=== PATIENT | female | born 1995 | race American Indian/Alaskan Native ===

== ENCOUNTER 2019-04-09 11:33 | Inpatient (IN) | payer MEDICAID ==
--- NOTE | 2019-04-09 11:42 | History and Physical Report ---
History of Present Illness Date of examination: 04/09/19 Date of admission: 04/09/19 11:33 Chief complaint: My water broke. History of present illness: Patient is a 23 year old who presents at 38.5 weeks with complaint of ROM with EDC 04/18/19. She has had an uncomplicated course. Pt is GBS negative. Past History Past Medical History: no pertinent history Past Surgical History: no surgical history Social history: single - Obstetrical History Expected Date of Delivery: 04/18/19 Actual Gestation: 38 Week(s) 5 Day(s) : 3 Para: 1 Number of Living Children: 1 Medications and Allergies Allergies Allergy/AdvReac Type Severity Reaction Status Date / Time No Known Allergies Allergy Unverified 12/11/15 13:35 Home Medications Medication Instructions Recorded Confirmed Last Taken Type DOXYCYCLINE Hyclate [Vibramycin 100 mg PO Q12HR #14 capsule 12/13/15 10/27/16 Unknown Rx CAP] Methylergonovine [Methergine] 0.2 mg PO Q8HR #6 tablet 12/13/15 10/27/16 Unknown Rx oxyCODONE /ACETAMINOPHEN [Percocet 1 tab PO Q6HR PRN #30 tablet 12/13/15 10/27/16 Unknown Rx 5/325] Ferrous Sulfate [Feosol 325 MG tab] 325 mg PO BID #60 tablet 10/28/16 Unknown Rx HYDROcodone/APAP 5-325 [[place] 2 each PO Q6H PRN #30 tablet 10/28/16 Unknown Rx 5-325 mg TAB] Ibuprofen [Motrin 800 MG tab] 800 mg PO Q8HR PRN #30 tablet 10/28/16 Unknown Rx Review of Systems All systems: negative Genitourinary: leakage of fluid, contractions - Physical Exam Breasts: Positive: deferred Cardiovascular: Regular rate, Normal S1, Normal S2 Lungs: Positive: Clear to auscultation, Normal air movement Abdomen: Positive: normal appearance, soft, normal bowel sounds Genitourinary (Female): Positive: normal external genitalia, normal perenium Vulva: both: normal Vagina: Positive: normal moisture Uterus: Positive: normal size Extremities: Positive: normal - Obstetrical FHR: auscultation normal Cervical Dilatation: 3 Cervical Effacement Percentage: 80 station: 0 Uterine Contraction Pattern: Irregular Uterine Contraction Intensity: Moderate Results All other labs normal. Assessment and Plan IUP at 38.5 weeks with srom. Doing well. Admit for labor and augmentation. Pt may have epidural when ready.Anticipate .
[2019-04-09] MEDS ORDERED: BRETHINE IVP PRN (11:43)
[2019-04-09] MEDS ORDERED: STADOL IV PRN (11:43)
[2019-04-09] MEDS ORDERED: XYLOCAINE 2% INFILTRATI ONE (11:43)
[2019-04-09] MEDS ORDERED: MINERAL OIL PO PRN (11:43)
[2019-04-09] MEDS ORDERED: BRETHINE SUB-Q PRN (11:43)
[2019-04-09] MEDS ORDERED: SUBLIMAZE IV PRN (11:43)
[2019-04-09] MEDS ORDERED: PHENERGAN PR PRN ×2 (11:43→20:58)
[2019-04-09] MEDS ORDERED: PITOCin/NS 20 UNIT/1000ML DRIP 20 UNITS/1,000 ML BAG IV SCH ×2 (12:00→20:58)
[2019-04-09] MEDS ORDERED: PITOCin/NS 30 UNIT/500ML 30 UNITS/500 ML BAG IV SCH ×2 (12:00)
[2019-04-09 12:08] LABS: Hemoglobin 8.2 gm/dl (10.1-14.3); Mean Corpuscular HGB Conc 32 % (30-34); Mean Corpuscular Volume 70 fl (79-97); Platelet Count 226 K/mm3 (140-440); Red Blood Count 3.73 M/mm3 (3.65-5.03); Red Cell Distribution Width 17.2 % (13.2-15.2)
[2019-04-09] MEDS: LACTATED RINGERS 1,000 ML IV SCH ×2 (12:54→16:26)
[2019-04-09] MEDS ORDERED: NARCAN 2 MG/2 ML IV PRN (17:17)
--- NOTE | 2019-04-09 17:20 | Anesthesia Consultation ---
Anesthesia Consult and Med Hx Date of service: 04/09/19 - Airway Anesthetic Teeth Evaluation: Good ROM Head & Neck: Adequate Mental/Hyoid Distance: Adequate Mallampati Class: Class II Intubation Access Assessment: Probably Good - Pulmonary Exam CTA: Yes - Cardiac Exam Cardiac Exam: RRR - Pre-Operative Health Status ASA Pre-Surgery Classification: ASA2 Proposed Anesthetic Plan: Epidural, Spinal - Pulmonary Hx Smoking: No Hx Asthma: No Hx Respiratory Symptoms: No SOB: No COPD: No Home Oxygen Therapy: No Hx Pneumonia: No Hx Sleep Apnea: No - Cardiovascular System Hx Hypertension: No Hx Coronary Artery Disease: No Hx Heart Attack/AMI: No Hx Angina: No Hx Percutaneous Transluminal Coronary Angioplasty (PTCA): No Hx Cardia Arrhythmia: No Hx Pacemaker: No Hx Internal Defibrillator: No Hx Valvular Heart Disease: No Hx Heart Murmur: No Hx Peripheral Vascular Disease: No - Central Nervous System Hx Neuromuscular Disorder: No Hx Seizures: No CVA: No Hx Back Pain: No Hx Psychiatric Problems: No - Gastrointestinal Hx Ulcer: No Hx Gastroesophageal Reflux Disease: Yes - Endocrine Hx Renal Disease: No Hx End Stage Renal Disease: No Hx Cirrhosis: No Hx Liver Disease: No Hx Insulin Dependent Diabetes: No Hx Non-Insulin Dependent Diabetes: No Hx Thyroid Disease: No Hx Hypothyroidism: No Hx Hyperthyroidism: No - Hematic Hx Anemia: No Hx Sickle Cell Disease: No - Other Systems Hx Alcohol Use: No Hx Substance Use: No Hx Cancer: No Hx Obesity: No
--- NOTE | 2019-04-09 17:21 | Post Anesthesia Evaluation ---
- Post Anesthesia Evaluation Patient Participated: Yes Airway Patent: Yes Stable Respiratory Function: Yes Nausea/Vomiting: No Temp > 96.8F: Yes Pain Manageable: Yes Adequeate Hydration: No Block Receding Appropriately: Yes Patient on Ventilator: No
--- NOTE | 2019-04-09 17:21 | Anesthesia Day of Surgery ---
Anesthesia Day of Surgery - Day of Surgery Patient Examined: Yes Patient H&P Reviewed: Yes Patient is NPO: Yes Beta Blockers: No Cardiac Clearance: No Pulmonary Clearance: No Josiah's Test: N/A
[2019-04-09] MEDS ORDERED: CYTOTEC ONE (17:40)
[2019-04-09] MEDS ORDERED: fentaNYL-BUPIV 2 MCG/ML-0.125% 200 MCG/100 ML BAG EPIDURAL SCH (18:00)
--- NOTE | 2019-04-09 18:01 | Procedure Note ---
OB Delivery Note - Delivery Date of Delivery: 04/09/19 Surgeon: LILLIAN MURILLO Estimated blood loss: other (400 mL) - Vaginal Delivery presentation: vertex Delivery position: OA Intrapartum events: PROM->1hr before delivery, uterine atony Delivery induction: oxytocin Delivery augmentation: pitocin Delivery monitor: external FHT, external uterine Route of delivery: Delivery placenta: spontaneous Delivery cord: 3 umbilical vessels Episiotomy: none Delivery laceration: none Anesthesia: epidural - Infant A at 1 minute: 8 at 5 minutes: 9 Infant Gender: Female (3294g (7lb 4.2 oz) @ 1725 pm)
[2019-04-09] MEDS ORDERED: TUCKS PAD TP PRN (20:58)
[2019-04-09] MEDS ORDERED: MILK OF MAGNESIA PO PRN (20:58)
[2019-04-09] MEDS ORDERED: ZOFRAN IV PRN (20:58)
[2019-04-09] MEDS ORDERED: TYLENOL PO PRN (20:58)
[2019-04-09] MEDS ORDERED: PHENERGAN PO PRN (20:58)
[2019-04-09] MEDS ORDERED: NORCO 5/325 PO PRN (20:58)
[2019-04-09] MEDS ORDERED: BENADRYL PO PRN (20:58)
[2019-04-09] MEDS ORDERED: SODIUM CHLORIDE FLUSH SYRINGE 10 ML IV NR (20:58)
[2019-04-09] MEDS ORDERED: DULCOLAX PR PRN (20:58)
[2019-04-09] MEDS ORDERED: LANSINOH TP PRN (20:58)
[2019-04-09] MEDS: FEOSOL PO SCH (21:42)
[2019-04-09] MEDS: IBUPROFEN PO SCH (21:43)
[2019-04-10] MEDS: IBUPROFEN PO SCH ×4 (05:31→23:57)
[2019-04-10 05:35] LABS: Hematocrit 20.2 % (30.3-42.9); Hemoglobin 6.4 gm/dl (10.1-14.3)
[2019-04-10] MEDS ORDERED: M-M-R II VACCINE SUB-Q ONE (06:00)
[2019-04-10] MEDS ORDERED: BOOSTRIX IM ONE (06:00)
--- NOTE | 2019-04-10 08:25 | Progress Note ---
Assessment and Plan - Patient Problems (1) (normal spontaneous vaginal delivery) Current Visit: No Status: Acute Plan to address problem: monitor closely routine care Subjective - Subjective Date of service: 04/10/19 Interval history: Patient denies any dizziness with ambulation. Had a decrease in H/H however patient appears to be tolerating without difficulty. Pain well controlled. Patient reports: appetite normal, voiding normally, pain well controlled, no dizzy ambulation [place]: doing well Objective - Vital Signs Latest vital signs: Vital Signs Temp Pulse Resp BP BP Pulse Ox 04/10/19 04:30 98.7 F 65 16 106/63 04/10/19 00:30 98.7 F 77 16 118/67 04/09/19 20:23 98.0 F 96 H 18 133/87 100 04/09/19 19:43 107 H 125/76 04/09/19 19:27 100 H 141/86 04/09/19 19:12 89 138/88 04/09/19 18:57 83 137/82 04/09/19 18:43 88 136/76 04/09/19 18:28 100 H 134/102 04/09/19 18:13 96 H 129/75 04/09/19 17:57 96 H 144/84 04/09/19 17:43 104 H 142/72 04/09/19 17:27 116 H 145/63 04/09/19 17:22 120 H 138/81 04/09/19 17:17 106 H 178/74 04/09/19 17:14 100 H 132/72 97 04/09/19 17:13 102 H 122/69 04/09/19 17:10 101 H 149/86 04/09/19 17:09 105 H 142/84 99 04/09/19 17:04 111 H 99 04/09/19 16:56 119 H 100 04/09/19 16:50 112 H 98 04/09/19 16:45 103 H 100 04/09/19 16:40 94 H 98 04/09/19 16:39 85 94 04/09/19 16:35 99 H 98 04/09/19 16:31 101 H 94 04/09/19 16:30 98 H 97 04/09/19 16:25 98 H 99 04/09/19 16:20 87 99 04/09/19 16:16 99.1 F 04/09/19 16:15 100 H 98 04/09/19 16:10 103 H 94 04/09/19 16:07 100 H 137/88 04/09/19 16:05 104 H 99 04/09/19 16:00 114 H 98 04/09/19 15:55 98 H 99 04/09/19 15:50 102 H 99 04/09/19 15:45 96 H 98 04/09/19 15:40 98 H 98 04/09/19 15:38 100 H 147/80 04/09/19 15:35 101 H 98 04/09/19 15:30 110 H 99 04/09/19 15:25 105 H 99 04/09/19 15:20 112 H 98 04/09/19 15:15 97 H 98 04/09/19 15:10 107 H 97 04/09/19 15:08 95 H 130/82 04/09/19 15:05 104 H 99 04/09/19 15:00 95 H 97 04/09/19 14:55 101 H 97 04/09/19 14:50 99 H 98 04/09/19 14:45 97 H 98 04/09/19 14:40 94 H 100 04/09/19 14:33 96 H 99 04/09/19 14:28 100 H 98 04/09/19 14:23 93 H 99 04/09/19 14:18 91 H 99 04/09/19 14:13 96 H 99 04/09/19 14:09 94 H 133/89 04/09/19 14:08 98 H 99 04/09/19 14:03 98 H 100 04/09/19 14:01 99.0 F 04/09/19 13:58 105 H 99 04/09/19 13:53 102 H 100 04/09/19 13:48 93 H 100 04/09/19 13:43 106 H 99 04/09/19 13:38 99 H 98 04/09/19 13:37 111 H 142/94 04/09/19 13:33 106 H 98 04/09/19 13:28 103 H 99 04/09/19 13:23 108 H 100 04/09/19 13:18 102 H 99 04/09/19 13:13 102 H 99 04/09/19 13:08 106 H 98 04/09/19 13:03 107 H 99 04/09/19 12:58 101 H 99 04/09/19 12:53 97 H 98 04/09/19 12:48 113 H 98 04/09/19 12:13 109 H 98 04/09/19 12:08 114 H 98 04/09/19 12:03 116 H 98 04/09/19 11:58 109 H 99 04/09/19 11:53 111 H 98 04/09/19 11:48 114 H 98 Intake and Output 04/09/19 04/10/19 04/10/19 22:59 06:59 14:59 Intake Total 749.667 Output Total 250 1400 Balance 499.667 -1400 Intake: IV 449.667 Lactated Ringers 1,000 ml 441.667 @ 125 mls/hr IV DIRECT NITESH Rx#:[id number] PITOCin/NS 30 UNIT/500ML 8 30 units In 500 ml @ 1 MILLIUNITS/MIN 1 mls/hr IV TITR NITESH Rx#:[id number] Intake, Free Water 300 Output: Urine 250 1400 Void 250 1400 Other: Total, Output Amount 250 600 # Voids Void 1 1 - Exam Abdomen: Present: normal appearance - Labs Labs: Abnormal lab results 04/09/19 04/10/19 Range/Units 11:20 05:09 WBC 17.1 H (4.5-11.0) K/mm3 Hgb 8.2 L 6.4 L (10.1-14.3) gm/dl Hct 26.0 L 20.2 L (30.3-42.9) % MCV 70 L (79-97) fl MCH 22 L (28-32) pg RDW 17.2 H (13.2-15.2) %
[2019-04-10] MEDS: FEOSOL PO SCH ×2 (13:20→21:18)
[2019-04-11] MEDS: IBUPROFEN PO SCH (05:32)
--- NOTE | 2019-04-11 11:16 | Progress Note ---
Assessment and Plan - Patient Problems (1) (normal spontaneous vaginal delivery) Current Visit: No Status: Acute Plan to address problem: discharge home Subjective - Subjective Date of service: 04/11/19 Interval history: Patient denies any dizziness with ambulation. She has been ambulating without difficulty. Pain well controlled Patient reports: appetite normal, voiding normally, pain well controlled, no dizzy ambulation : doing well Objective - Vital Signs Latest vital signs: Vital Signs Temp Pulse Resp BP BP Pulse Ox 04/11/19 08:11 98.1 F 80 16 135/90 100 04/11/19 00:48 98.2 F 85 16 126/74 100 04/10/19 16:23 98.2 F 91 H 18 125/78 04/10/19 13:35 99.7 F H 90 18 135/80 99 Intake and Output 04/10/19 04/11/19 04/11/19 22:59 06:59 14:59 Intake Total 480 380 240 Balance 480 380 240 Intake: Oral 480 380 240 Other: Total, Intake Amount 480 380 240 Voiding Method Toilet Toilet # Voids Void 4 # Bowel Movements 0 - Exam Uterus: Present: normal, firm
--- NOTE | 2019-04-11 11:18 | Discharge Summary ---
Providers - Providers Date of Admission: 04/09/19 11:33 Date of discharge: 04/11/19 Attending physician: DAMIAN TRIPLETT Primary care physician: DAMIAN TRIPLETT Hospitalization Reason for admission: active labor Delivery: Discharge diagnosis: IUP at term delivered [place] baby: female Hospital course: Patient admitted with +SROM. Had a . complicated by anemia that the patient tolerated. Condition at discharge: Good Disposition: DC-01 TO HOME OR SELFCARE - Discharge Diagnoses (1) (normal spontaneous vaginal delivery) Status: Acute Plan - Discharge Medications Prescriptions: Ferrous Sulfate [Feosol 325 MG tab] 325 mg PO BID #60 tablet Ibuprofen [Motrin] 800 mg PO Q8HR PRN #60 tablet PRN Reason: Pain, Mild (1-3) HYDROcodone/APAP 5-325 [[place] 5/325] 1 each PO Q6HR PRN #20 tablet PRN Reason: Pain - Provider Discharge Summary Activity: no sex for 6 weeks, no heavy lifting 4 weeks, no strenuous exercise Diet: routine Instructions: routine Additional instructions: [] Smoking cessation referral if applicable(refer to patient education folder for contact #) [] Refer to [facility] Booklet Call your doctor immediately for: * Fever > 100.5 * Heavy vaginal bleeding ( >1 pad per hour) * Severe persistent headache * Shortness of breath * Reddened, hot, painful area to leg or breast * schedule followup in 4 weeks - Follow up plan
[2019-04-11 12:35] VITALS: BP 135/93
== END 2019-04-11 14:15 | disposition home or self-care (01) | DRG 775 ==
LOC: LD 11:33 → OB 20:39
PROVIDERS: ADMIT Obstetrics & Gynecology; ATTEND Obstetrics & Gynecology
PROC: 10E0XZZ Delivery of Products of Conception, External Approach (ICD-10-PCS; principal; 2019-04-09)
PROC: 3E0R3BZ Introduction of Anesthetic Agent into Spinal Canal, Percutaneous Approach (ICD-10-PCS; 2019-04-09)
PROC: 00HU33Z Insertion of Infusion Device into Spinal Canal, Percutaneous Approach (ICD-10-PCS; 2019-04-09)
PROC: 3E033VJ Introduction of Other Hormone into Peripheral Vein, Percutaneous Approach (ICD-10-PCS; 2019-04-09)
PROC: 3E0234Z Introduction of Serum, Toxoid and Vaccine into Muscle, Percutaneous Approach (ICD-10-PCS; 2019-04-10)
DX: O42.92 Full-term premature rupture of membranes, unspecified as to length of time between rupture and onset of labor (principal); K21.9 Gastro-esophageal reflux disease without esophagitis; Z37.0 Single live birth; Z3A.38 38 weeks gestation of pregnancy; O62.2 Other uterine inertia; O99.62 Diseases of the digestive system complicating childbirth; O90.81 Anemia of the puerperium; D64.9 Anemia, unspecified; Z23 Encounter for immunization
CPT/HCPCS: 36415; 85014; 85018; 85027; 86592; 86850; 86900; 86901; 90471; 90715; G0378; J2590; J3010; J7120

== ENCOUNTER 2019-05-05 06:21 | Day surgery (SDC) | payer MEDICAID ==
[2019-05-05] MEDS ORDERED: NACL BACTERIOSTATIC INFILTRATI ONE (06:44)
[2019-05-05] MEDS ORDERED: XYLOCAINE MPF 2% ONE (07:11)
[2019-05-05] MEDS ORDERED: SUBLIMAZE ONE (07:11)
[2019-05-05] MEDS ORDERED: ZOFRAN ONE (07:11)
[2019-05-05] MEDS ORDERED: ZEMURON IV ONE (07:11)
[2019-05-05] MEDS ORDERED: SUBLIMAZE IV PRN (07:12)
[2019-05-05] MEDS ORDERED: DIPRIVAN 10 MG/ML IV ONE (07:12)
[2019-05-05] MEDS ORDERED: ZOFRAN IV PRN (07:12)
--- NOTE | 2019-05-05 07:13 | Anesthesia Day of Surgery ---
Anesthesia Day of Surgery - Day of Surgery Patient Examined: Yes Patient H&P Reviewed: Yes Patient is NPO: Yes
[2019-05-05 07:14] LABS: Basophils # (Auto) 0.1 K/mm3 (0.0-0.1); Basophils % (Auto) 0.8 % (0.0-1.8); Eosinophils # (Auto) 0.5 K/mm3 (0.0-0.4); Eosinophils % (Auto) 6.1 % (0.0-4.3); Hematocrit 26.9 % (30.3-42.9); Hemoglobin 8.3 gm/dl (10.1-14.3); Lymphocytes # (Auto) 3.6 K/mm3 (1.2-5.4); Lymphocytes % (Auto) 44.2 % (13.4-35.0); Mean Corpuscular HGB Conc 31 % (30-34); Mean Corpuscular Volume 70 fl (79-97); Monocytes # (Auto) 0.4 K/mm3 (0.0-0.8); Monocytes % (Auto) 4.8 % (0.0-7.3); Platelet Count 228 K/mm3 (140-440); Red Blood Count 3.84 M/mm3 (3.65-5.03)
--- NOTE | 2019-05-05 07:15 | Anesthesia Consultation ---
Anesthesia Consult and Med Hx Date of service: 05/05/19 - Airway Anesthetic Teeth Evaluation: Good Mallampati Class: Class II Intubation Access Assessment: Good - Pre-Operative Health Status ASA Pre-Surgery Classification: ASA2 Proposed Anesthetic Plan: General (April 09-had baby and not ) - Pulmonary Hx Smoking: Yes (STOPPED 2014) Hx Asthma: No Hx Respiratory Symptoms: No SOB: No COPD: No Hx Pneumonia: No Hx Sleep Apnea: No (ABHISHEK PRE SCREEN NEGATIVE) - Cardiovascular System Hx Hypertension: No Hx Coronary Artery Disease: No Hx Heart Attack/AMI: No Hx Angina: No Hx Percutaneous Transluminal Coronary Angioplasty (PTCA): No Hx Cardia Arrhythmia: No Hx Pacemaker: No Hx Internal Defibrillator: No Hx Valvular Heart Disease: No Hx Heart Murmur: No Hx Peripheral Vascular Disease: No - Central Nervous System Hx Neuromuscular Disorder: No Hx Seizures: No CVA: No Hx Back Pain: No Hx Psychiatric Problems: No - Gastrointestinal Hx Ulcer: No Hx Gastroesophageal Reflux Disease: Yes - Endocrine Hx Renal Disease: No Hx End Stage Renal Disease: No Hx Cirrhosis: No Hx Liver Disease: No Hx Insulin Dependent Diabetes: No Hx Non-Insulin Dependent Diabetes: No Hx Thyroid Disease: No Hx Hypothyroidism: No Hx Hyperthyroidism: No - Hematic Hx Anemia: Yes (ON DAILY IRON) Hx Sickle Cell Disease: No - Other Systems Hx Alcohol Use: No Hx Substance Use: No Hx Cancer: No Hx Obesity: No - Additional Comments Anesthesia Medical History Comments: Had baby April 09 and not
[2019-05-05 07:18] LABS: Red Cell Distribution Width 20.6 % (13.2-15.2)
[2019-05-05] MEDS ORDERED: BREVIBLOC IV ONE (07:30)
[2019-05-05] MEDS ORDERED: DECADRON ONE (07:30)
[2019-05-05] MEDS ORDERED: MARCAINE 0.25% INFILTRATI ONE ×2 (07:49→09:13)
[2019-05-05] MEDS ORDERED: LACTATED RINGERS 1,000 ML IV SCH (08:00)
[2019-05-05] MEDS ORDERED: VERSED IV NR (08:00)
[2019-05-05] MEDS ORDERED: TRANSDERM-SCOP TD NR (08:00)
--- NOTE | 2019-05-05 08:32 | Short Stay Summary ---
Short Stay Documentation Date of service: 05/05/19 Narrative H&P: Pt is a 23 year old female who presents today for elective sterilization. - History H&P: obtained from office Past Medical History: No medical history, anemia Past Surgical History: No surgical history Social history: single - Allergies and Medications Current Medications: Allergies No Known Allergies Allergy (Verified 04/09/19 11:46) Home Medications Medication Instructions Recorded Confirmed Last Taken Type Ferrous Sulfate [Feosol 325 MG tab] 325 mg PO BID #60 tablet 10/28/16 05/05/19 2 Days Ago Rx ~05/03/19 Ibuprofen [Motrin] 800 mg PO Q8HR PRN #60 tablet 04/11/19 05/05/19 1 Week Ago Rx ~04/28/19 Active Medications Fentanyl (Sublimaze) 50 mcg IV Q5MIN PRN PRN Reason: Pain , Severe (7-10) Stop: 05/05/19 20:00 Lactated Ringer's (Lactated Ringers) 1,000 mls @ 125 mls/hr IV DIRECT NITESH Last Admin: 05/05/19 07:33 Dose: 125 mls/hr Documented by: Midazolam HCl (Versed) 2 mg IV PREOP NR Stop: 05/05/19 23:59 Ondansetron HCl (Zofran) 4 mg IV ONCE PRN PRN Reason: Nausea And Vomiting Stop: 05/05/19 16:00 Scopolamine (Transderm-Scop) 1 each TD PREOP NR Stop: 05/05/19 20:00 Last Admin: 05/05/19 07:33 Dose: 1 each Documented by: - Physical exam General appearance: no acute distress Integumentary: no rash Lungs: Clear to auscultation, Normal air movement Breasts: deferred Heart: Regular rate, Normal S1, Normal S2 Gastrointestinal: normal, normoactive bowel sounds Female Genitourinary: deferred Rectal Exam: deferred Extremities: abnormal (plus 1 edema) Neurological: Normal speech, Normal tone - Brief post op/procedure progress note Date of procedure: 05/05/19 Pre-op diagnosis: Undesired fertility Post-op diagnosis: same Procedure: Bilateral partial salpingectomy Anesthesia: GETA Findings: Slightly enlarged uterus, normal tubes and ovaries Surgeon: DAMIAN TRIPLETT Estimated blood loss: 50-100ml Pathology: list (portion of right and left fallopian tube) Specimen disposition: to lab Condition: stable - Hospital course Hospital course: unremarkable - Disposition Condition at discharge: Good Disposition: DC-01 TO HOME OR SELFCARE Short Stay Discharge Plan Activity: advance as tolerated Weight Bearing Status: Weight Bear as Tolerated Diet: regular Follow up with: DAMIAN TRIPLETT MD [Primary Care Provider] - 14 Days Prescriptions: Ibuprofen [Motrin 800 MG tab] 800 mg PO Q8HR PRN #60 tablet PRN Reason: Pain, Mild (1-3) HYDROcodone/APAP 5-325 [[place] 5/325] 2 each PO Q6H PRN #30 tablet PRN Reason: Pain
[2019-05-05] MEDS ORDERED: ANCEF/STERILE WATER 2 GM/20 ML 2 GM/20 ML SYRINGE IV NR (09:00)
[2019-05-05] MEDS ORDERED: NACL 0.9% IR ONE (09:13)
--- NOTE | 2019-05-05 09:46 | Operative Report ---
Operative Report Operative Report: Preoperative diagnosis: Undesired fertility Postoperative diagnosis: Same Procedure: Bilateral laparoscopic partial salpingectomy Surgeon: Naima Walter Anesthesia: General EBL: Minimal IV fluids: 700 mL Urine output: 200 mL Findings: Slightly enlarged uterus with normal tubes and ovaries, moderate amount of serosanguineous fluid in the lower pelvis Specimens: Portion of right and left fallopian tube Complications: None The patient was properly identified as herself. She was then taken to the OR with IV running and in place. She was given general anesthesia without difficulty. She was placed in a dorsal lithotomy position. She was then prepped and draped in normal sterile fashion. Attention was turned to the patient's vagina. Her bladder was drained of clear urine with a red rubber catheter. The speculum was then placed the patient's vagina. The cervix was visualized and grasped with tenaculum. The acorn cannula was then inserted. The surgeon's gloves were changed and attention turned to the patient's abdomen. A small incision was made in the patient's umbilicus incision a 5 mm trocar was placed. The laparoscope confirmed intra-abdominal placement. The abdomen was insufflated with CO2 gas to approximately 25 mmHg. Both fallopian tubes were identified. With direct visualization a second trocar was placed through an incision in the left lower quadrant. Both tubes were found and followed out to the fimbriated ends. Each tube was cauterized in the midportion on 2 sides, and a piece of tube measuring approximately 2 cm was excised on both sides. Following this, some of the serosanguineous fluid was drained from her pelvis as well approximately 40 mL. There was no active bleeding. There was excellent hemostasis at the end of this portion of the procedure. Each tube was handed off for pathology. At this point the abdomen was deflated. All instruments were then removed from the abdomen. The incisions were then closed with 4-0 Monocryl. The incisions were also injected with quarter percent Marcaine. The patient tolerated the procedure well she was then awakened and taken recovery in stable condition. Sponge needle and instrument counts were correct 2.
[2019-05-05] MEDS ORDERED: NORCO 5/325 PO PRN (10:10)
[2019-05-05 10:21] VITALS: BP 125/75
--- NOTE | 2019-05-05 20:29 | Post Anesthesia Evaluation ---
- Post Anesthesia Evaluation Patient Participated: Yes Airway Patent: Yes Stable Respiratory Function: Yes Nausea/Vomiting: No Temp > 96.8F: Yes Pain Manageable: Yes Adequeate Hydration: Yes Anesthesia Complications: No Block Receding Appropriately: Not Applicable Patient on Ventilator: No
== END 2019-05-05 11:10 | disposition home or self-care (01) ==
LOC: OR 06:21
PROVIDERS: ATTEND Obstetrics & Gynecology
DX: Z30.2 Encounter for sterilization (principal); D64.9 Anemia, unspecified; K21.9 Gastro-esophageal reflux disease without esophagitis; Z98.890 Other specified postprocedural states; Z87.891 Personal history of nicotine dependence; Z79.899 Other long term (current) drug therapy; Z83.3 Family history of diabetes mellitus; Z82.49 Family history of ischemic heart disease and other diseases of the circulatory system
CPT/HCPCS: 36415; 58670; 81025; 85025; 88302; J0690; J1100; J2250; J2405; J2704; J3010; J7120